=== PATIENT | female | born 1975 | race Caucasian/White ===

== ENCOUNTER 2017-06-04 06:58 | Inpatient (IN) | payer OTHER ==
[2017-06-04] MEDS ORDERED: Sodium Chloride 0.9% 10 ML Syringe FLUSH PRN (08:26)
[2017-06-04] MEDS ORDERED: Oxytocin/Lactated Ringers 10 UNIT/1,000 ML BAG IV SCH ×2 (08:30)
--- NOTE | 2017-06-04 08:30 | PCM.LDHP ---
L&D History of Present Illness - General Date of Service: 06/04/17 Admit Problem/Dx: Admission Diagnosis/Problem Admission Diagnosis/Problem Source of Information: Patient History Limitations: Reports: No Limitations - History of Present Illness Introduction:: 41 year old at 38w0d here for induction for chronic hypertension, diabetes and AMA. - Related Data Allergies/Adverse Reactions: Allergies Allergy/AdvReac Type Severity Reaction Status Date / Time acetaminophen [From Tylenol] Allergy Vomiting Verified 06/04/17 07:40 Penicillins Allergy Anaphylactic Verified 06/04/17 07:39 Shock H&P Review of Systems - Review of Systems: Review Of Systems: See Below General: Reports: No Symptoms HEENT: Reports: No Symptoms Pulmonary: Reports: No Symptoms Cardiovascular: Reports: No Symptoms Gastrointestinal: Reports: No Symptoms Genitourinary: Reports: No Symptoms Musculoskeletal: Reports: No Symptoms Skin: Reports: No Symptoms Psychiatric: Reports: No Symptoms Neurological: Reports: No Symptoms Hematologic/Lymphatic: Reports: No Symptoms Immunologic: Reports: No Symptoms L&D Exam - Exam Exam: See Below - OB Specific Contraction Intensity: Moderate Movement: Active Heart Tones per Min: 145 Presentation: Vertex - Boyle Score Boyle Score Cervix Position: Posterior Boyle Score Consistency: Soft Boyle Score Effacement: 51-70% Boyle Score Dilation: 1-2 cm Boyle Score 's Station: -3 Boyle Score Total: 5 - Exam General: Alert, Oriented HEENT: PERRLA, Conjunctiva Clear, EACs Clear, EOMI, Hearing Intact, Mucosa Moist & [place], Nares Patent, Normal Nasal Septum, Posterior Pharynx Clear, TMs Clear Neck: Supple, Trachea Midline Lungs: Clear to Auscultation, Normal Respiratory Effort Cardiovascular: Regular Rate, Regular Rhythm GI/Abdominal Exam: Normal Bowel Sounds, Soft, Non-Tender, No Organomegaly, No Distention, No Abnormal Bruit, No Mass, Pelvis Stable Genitourinary: Normal external exam, Normal bimanual exam, Normal speculum exam Back Exam: Normal Inspection, Full Range of Motion Extremities: Normal Inspection, Normal Range of Motion, Non-Tender, No Pedal Edema, Normal Capillary Refill Skin: Warm, Dry, Intact Neurological: Cranial Nerves Intact, Reflexes Equal Bilateral Psychiatric: Alert, Normal Affect, Normal Mood Problem List Initiated/Reviewed/Updated: Yes Orders Last 24hrs: Active Orders 24 hr Category Date Time Status Activity as Tolerated [RC] PFP Care 06/04/17 08:26 Ordered Blood Glucose Check, Bedside [RC] WITHMEALSANDBED Care 06/04/17 08:26 Ordered Communication Order [RC] ASDIRECTED Care 06/04/17 08:26 Ordered Heart Tones [RC] ASDIRECTED Care 06/04/17 08:26 Ordered Notify Provider [RC] PFP Care 06/04/17 08:26 Ordered Notify Provider [RC] PRN Care 06/04/17 08:26 Ordered Peripheral IV Care [RC] . DIRECTED Care 06/04/17 08:26 Ordered Vital Signs [RC] PER UNIT ROUTINE Care 06/04/17 08:26 Ordered Regular Diet [DIET] Diet 06/04/17 Breakfast Ordered CBC W/O DIFF,HEMOGRAM [HEME] AM Lab 06/05/17 05:11 Ordered Clindamycin Phosphate [Cleocin] 900 mg Med 06/04/17 08:30 Ordered Sodium Chloride 0.9% [Normal Saline] 100 ml IV Q8H Lactated Ringers [Ringers, Lactated] 1,000 ml Med 06/04/17 08:30 Ordered IV ASDIRECTED Oxytocin/Lactated Ringers [Pitocin in LR 10 Units/1,000 Med 06/04/17 08:30 Ordered ML] 10 unit in 1,000 ml IV .CONTINUOUS Oxytocin/Lactated Ringers [Pitocin in LR 10 Units/1,000 Med 06/04/17 08:30 Ordered ML] 10 unit in 1,000 ml IV TITRATE Sodium Chloride 0.9% [Saline Flush] Med 06/04/17 08:26 Ordered 10 ml FLUSH ASDIRECTED PRN Electronic Heart Tones Ext w TOCO [WOMSER] Oth 06/04/17 08:26 Ordered Routine Electronic Heart Tones Internal [WOMSER] Per Unit Oth 06/04/17 08:26 Ordered Routine Peripheral IV Insertion Adult [OM.PC] Routine Oth 06/04/17 08:26 Ordered Resuscitation Status Routine Resus Stat 06/04/17 08:26 Ordered Assessment/Plan Comment:: Term induction. GBS positive - clindamycin. Check blood sugars q4 initially then more frequently when active or if high or low Monitor BPs
[2017-06-04] MEDS: Lactated Ringers 1,000 ML IV SCH ×3 (08:44→15:17)
[2017-06-04] MEDS: Clindamycin Phosphate 900 MG in Sodium Chloride 0.9% 100 ML IV SCH ×2 (08:44→18:51)
[2017-06-04] MEDS ORDERED: ePHEDrine 50 MG/ML SDV IVPUSH PRN ×2 (12:22→18:47)
[2017-06-04] MEDS ORDERED: fentaNYL 100 MCG/2 ML SDV EPIDUR PRN (12:22)
[2017-06-04] MEDS ORDERED: Ondansetron 4 MG/2 ML SDV IVPUSH PRN (12:22)
--- NOTE | 2017-06-04 12:24 | PCM.PREANE ---
Preanesthetic Assessment - Anesthesia/Transfusion/Family Hx Anesthesia History: Prior Anesthesia Without Reaction Family History of Anesthesia Reaction: No Transfusion History: No Prior Transfusion(s) Intubation History: Unknown - Review of Systems General: No Symptoms Pulmonary: No Symptoms Cardiovascular: No Symptoms (HTN), Lightheadedness (with hypoglycemia) Gastrointestinal: No Symptoms (GERD with ), Constipation Neurological: No Symptoms, Headache Other: Reports: None (history of kidney stones), Easy Bruising, Diabetes (BS @ 1111= 81) - Physical Assessment NPO Status Date: 06/04/17 NPO Status Time: 11:30 Pulse: 81 O2 Sat by Pulse Oximetry: 99 Respiratory Rate: 18 Blood Pressure: 131/90 Temperature: 36.3 C Vital Signs: Last Vital Signs Temp 36.3 C 06/04/17 08:00 Pulse 81 06/04/17 08:00 Resp 18 06/04/17 08:00 BP 131/90 06/04/17 08:00 Pulse Ox 99 06/04/17 08:00 Height: 1.57 m Weight: 98.43 kg ASA Class: 2 Mental Status: Alert & Oriented x3 Airway Class: Mallampati = 2 Dentition: Reports: Normal Dentition, Caries Thyro-Mental Finger Breadths: 3 Mouth Opening Finger Breadths: 3 ROM/Head Extension: Full Lungs: Clear to Auscultation, Normal Respiratory Effort Cardiovascular: Regular Rate, Regular Rhythm, No Murmurs - Lab Values: Laboratory Last Values WBC 10.97 K/mm3 (3.98-10.04) H 06/04/17 09:36 RBC 4.23 M/mm3 (3.98-5.22) 06/04/17 09:36 Hgb 12.5 gm/L (11.2-15.7) 06/04/17 09:36 Hct 37.4 % (34.1-44.9) 06/04/17 09:36 MCV 88.4 fl (79.4-94.8) 06/04/17 09:36 MCH 29.6 pg (25.6-32.2) 06/04/17 09:36 MCHC 33.4 g/dl (32.2-35.5) 06/04/17 09:36 RDW Std Deviation 47.9 fL (36.4-46.3) H 06/04/17 09:36 Plt Count 191 K/mm3 (182-369) 06/04/17 09:36 MPV 11.2 fl (9.4-12.3) 06/04/17 09:36 Above labs reviewed and noted and within acceptable ranges to proceed with epidural if patient so desires. - Allergies Allergies/Adverse Reactions: Allergies Allergy/AdvReac Type Severity Reaction Status Date / Time Penicillins Allergy Anaphylactic Verified 06/04/17 07:39 Shock acetaminophen [From Tylenol] AdvReac Vomiting Verified 06/04/17 08:31 - Anesthesia Plan Pre-Op Medication Ordered: None - Acknowledgements Anesthesia Type Planned: Epidural Pt an Appropriate Candidate for the Planned Anesthesia: Yes Alternatives and Risks of Anesthesia Discussed w Pt/Guardian: Yes Pt/Guardian Understands and Agrees with Anesthesia Plan: Yes PreAnesthesia Questionnaire Cardiovascular History: Reports: Hypertension Genitourinary History: Reports: Renal Calculus Endocrine/Metabolic History: Reports: Diabetes, Gestational - Past Surgical History Female Surgical History: Reports: None - SUBSTANCE USE Smoking Status *Q: Never Smoker Second Hand Smoke Exposure: No Recreational Drug Use History: No - HOME MEDS Home Medications: Home Meds Insulin Lispro [HumaLOG] 100 unit SQ 06/04/17 [History] Methyldopa 250 mg PO BID 06/04/17 [History] PNV95/Ferrous Fumarate/FA [ Vitamin Tablet] 1 tab PO DAILY 06/04/17 [ History] - CURRENT (IN HOUSE) MEDS Current Meds: Current Medications Clindamycin Phosphate 900 mg/ (Sodium Chloride) 106 mls @ 212 mls/hr IV Q8H REJI Last Admin: 06/04/17 08:44 Dose: 212 mls/hr Lactated Ringer's (Ringers, Lactated) 1,000 mls @ 100 mls/hr IV ASDIRECTED REJI Last Admin: 06/04/17 08:44 Dose: 100 mls/hr Oxytocin/Lactated Ringer's (Pitocin In Lr 10 Units/1,000 Ml) 10 unit in 1,000 mls @ 12 mls/hr IV TITRATE REJI; Protocol Last Titration: 06/04/17 09:30 Dose: 4 munits/min, 24 mls/hr Oxytocin/Lactated Ringer's (Pitocin In Lr 10 Units/1,000 Ml) 10 unit in 1,000 mls @ 100 mls/hr IV .CONTINUOUS REJI Sodium Chloride (Saline Flush) 10 ml FLUSH ASDIRECTED PRN PRN Reason: Keep Vein Open
[2017-06-04] MEDS ORDERED: Bupivacaine/fentaNYL/NS 100 ML Bag EPIDUR SCH (12:30)
--- NOTE | 2017-06-04 13:18 | PCM.PNLD ---
Labor Progress Note - VS & Meds Vital Signs: Last Vital Signs Temp 36.3 C 06/04/17 12:24 Pulse 81 06/04/17 12:24 Resp 18 06/04/17 12:24 BP 131/90 06/04/17 12:24 Pulse Ox 99 06/04/17 12:24 Active Medications: Current Medications Ephedrine Sulfate (Ephedrine Sulfate) 5 mg IVPUSH ASDIRECTED PRN PRN Reason: Hypotension Fentanyl (Sublimaze) 100 mcg EPIDUR Q3H PRN PRN Reason: Pain Fentanyl/Bupivacaine HCl (Fentanyl/Bupivacaine/Ns 2 Mcg-0.125% 100 Ml) 100 ml EPIDUR ASDIRECTED [facility] Clindamycin Phosphate 900 mg/ (Sodium Chloride) 106 mls @ 212 mls/hr IV Q8H [facility] Last Admin: 06/04/17 08:44 Dose: 212 mls/hr Lactated Ringer's (Ringers, Lactated) 1,000 mls @ 100 mls/hr IV ASDIRECTED [facility] Last Admin: 06/04/17 08:44 Dose: 100 mls/hr Oxytocin/Lactated Ringer's (Pitocin In Lr 10 Units/1,000 Ml) 10 unit in 1,000 mls @ 12 mls/hr IV TITRATE REJI; Protocol Last Titration: 06/04/17 09:30 Dose: 4 munits/min, 24 mls/hr Oxytocin/Lactated Ringer's (Pitocin In Lr 10 Units/1,000 Ml) 10 unit in 1,000 mls @ 100 mls/hr IV .CONTINUOUS [facility] Ondansetron HCl (Zofran) 4 mg IVPUSH ONETIME PRN PRN Reason: Nausea/Vomiting Sodium Chloride (Saline Flush) 10 ml FLUSH ASDIRECTED PRN PRN Reason: Keep Vein Open - Uterine Contractions Uterine Monitoring Mode: External [place] Contraction Intensity: Moderate - Monitoring Monitor Mode: External Ultrasound Heart Rate (FHR) Baseline: 145 Heart Rate (FHR) Variability: Moderate (6-25 bmp) - Vaginal Exam Dilation (cm): 2.5 Effacement (Percent): 80 Station: -2 Cervical Position: Midposition - Labor Progress (Free Text) Labor Progress: AROM clear fluid. Blood sugars good No concerns. Monitor closely. Anticipate unless otherwise indicated
--- NOTE | 2017-06-04 16:16 | PCM.PNLD ---
Labor Progress Note - VS & Meds Vital Signs: Last Vital Signs Temp 36.3 C 06/04/17 13:26 Pulse 81 06/04/17 13:26 Resp 18 06/04/17 13:26 BP 131/90 06/04/17 13:26 Pulse Ox 99 06/04/17 13:26 Active Medications: Current Medications Ephedrine Sulfate (Ephedrine Sulfate) 5 mg IVPUSH ASDIRECTED PRN PRN Reason: Hypotension Fentanyl (Sublimaze) 100 mcg EPIDUR Q3H PRN PRN Reason: Pain Fentanyl/Bupivacaine HCl (Fentanyl/Bupivacaine/Ns 2 Mcg-0.125% 100 Ml) 100 ml EPIDUR ASDIRECTED [facility] Clindamycin Phosphate 900 mg/ (Sodium Chloride) 106 mls @ 212 mls/hr IV Q8H [facility] Last Admin: 06/04/17 08:44 Dose: 212 mls/hr Lactated Ringer's (Ringers, Lactated) 1,000 mls @ 100 mls/hr IV ASDIRECTED [facility] Last Admin: 06/04/17 13:34 Dose: 100 mls/hr Oxytocin/Lactated Ringer's (Pitocin In Lr 10 Units/1,000 Ml) 10 unit in 1,000 mls @ 12 mls/hr IV TITRATE REJI; Protocol Last Titration: 06/04/17 12:00 Dose: 8 munits/min, 48 mls/hr Oxytocin/Lactated Ringer's (Pitocin In Lr 10 Units/1,000 Ml) 10 unit in 1,000 mls @ 100 mls/hr IV .CONTINUOUS [facility] Ondansetron HCl (Zofran) 4 mg IVPUSH ONETIME PRN PRN Reason: Nausea/Vomiting Sodium Chloride (Saline Flush) 10 ml FLUSH ASDIRECTED PRN PRN Reason: Keep Vein Open - Uterine Contractions Uterine Monitoring Mode: External [place] Contraction Intensity: Moderate to Strong - Monitoring Monitor Mode: External Ultrasound Heart Rate (FHR) Baseline: 145 Heart Rate (FHR) Variability: Moderate (6-25 bmp) Decelerations: Late, Variable Strip Review: Category II - Vaginal Exam Dilation (cm): 5 Effacement (Percent): 80 Station: -3 Cervical Position: Midposition - Labor Progress (Free Text) Labor Progress: Increase in baseline FHR, some variable and lates. Now in last 10 minutes improved. Will restart pitocin and decide in next 15 minutes or so on if continued non-reassuring. If improves will watch closely. Add type and screen.
[2017-06-04] MEDS ORDERED: Citric Acid/Sodium Citrate Solution 30 ML Cup ONE (16:41)
[2017-06-04] MEDS ORDERED: Metoclopramide 10 MG/2 ML SDV ONE (16:41)
[2017-06-04] MEDS ORDERED: Bupivacaine 0.75% 30 ML SDV ONE (16:43)
[2017-06-04] MEDS ORDERED: Ketorolac 30 MG/ML SDV ONE (16:43)
[2017-06-04] MEDS ORDERED: Morphine PF 10 MG/10 ML SDV ONE (16:43)
[2017-06-04] MEDS ORDERED: ceFAZolin 1 GM Vial ONE (16:43)
[2017-06-04] MEDS ORDERED: Lidocaine 1% 4 ML ONE (16:43)
[2017-06-04] MEDS ORDERED: Ondansetron 4 MG/2 ML SDV ONE (16:43)
[2017-06-04] MEDS ORDERED: Oxytocin 10 Units/1 ML SDV ONE (16:43)
[2017-06-04] MEDS ORDERED: Lactated Ringers 2,000 ML ONE (16:43)
[2017-06-04] MEDS ORDERED: Phenylephrine 1% 10 MG/ML SDV ONE (16:43)
[2017-06-04] MEDS ORDERED: 50% Dextrose in Water 50 ML Syringe ONE (16:58)
[2017-06-04] MEDS ORDERED: Bupivacaine 0.5% 30 ML SDV ONE (17:02)
[2017-06-04] MEDS ORDERED: Propofol 200 MG/20 ML SDV ONE ×2 (17:15→17:18)
[2017-06-04] MEDS ORDERED: fentaNYL 250 MCG/5 ML SDV ONE (17:16)
[2017-06-04] MEDS ORDERED: Succinylcholine/Normal Saline 100 MG/5 ML Syringe ONE ×2 (17:27)
[2017-06-04] MEDS ORDERED: HYDROmorphone 0.5 MG/0.5 ML Syringe ONE (17:39)
--- NOTE | 2017-06-04 18:10 | PCM.OPNOTE ---
- General Post-Op/Procedure Note Date of Surgery/Procedure: 06/04/17 Operative Procedure(s): primary Findings: vertex, viable male, weight 5#11, 1721, APGARS 1/7 Pre Op Diagnosis: non reassuring monitoring, GDM, chronic HTN, age 41 Post-Op Diagnosis: Same Anesthesia Technique: General ET Tube Primary Surgeon: Fabiana Hicks Cartography Teacher: Yair Nobles Reason Cartography Teacher Was Necessary: retraction, stat nature, patient safety Pathology: placenta Fluid Replacement, Intraop: 1,500 Output, Urine Amount: 200 EBL in mLs: 1,200 Complications: None Condition: Good Free Text/Narrative:: Intake & Output 06/04/17 06/04/17 06/04/17 06:59 14:59 22:59 Intake Total 0 Balance 0 Doppler heart rate obtained immediately upon arrival to OR. The patient was taken to the operating room where general anesthesia was initiated. The patient was prepped and draped in the usual sterile fashion in the dorsal supine position with a leftward tilt. A Pfannenstiel skin incision was made with the scalpel and carried through to the underlying layer of fascia. The fascia was incised in the midline and extended bluntly. Peritoneum entered and extended bluntly. Uterine incision made and extended digitally. Clear fluid was noted. The was subsequently delivered by flexing the head to the incision. Body and shoulders followed without difficulty. The cord was clamped and cut. The limp infant was subsequently handed to the awaiting student finance specialist whose presence had been requested.. The placenta was delivered spontaneously intact with a three- vessel cord noted. The uterus was exteriorized and cleared of all clots and debris. The uterine incision was repaired in 2 layers using 0 monocryl. Hemostasis was visualized. Hemostasis was visualized bilaterally. The uterus was returned to the abdomen. The uterine incision was reexamined and it was noted to be hemostatic. The pelvis was copiously irrigated. The fascia was closed with 1 PDS suture, and the skin was closed with 3-0 monocryl. Sponge, lap, and instrument counts were correct x2. The patient was stable at the completion of the procedure and was subsequently transferred to the recovery room in stable condition.
[2017-06-04] MEDS ORDERED: Acetaminophen/oxyCODONE 325-5 MG Tab PO PRN (18:47)
[2017-06-04] MEDS ORDERED: Docusate Sodium 100 MG Cap PO PRN (18:47)
[2017-06-04] MEDS ORDERED: diphenhydrAMINE 50 MG/ML SDV IVPUSH PRN (18:47)
[2017-06-04] MEDS ORDERED: Lanolin 100% Cream 7 GM Tube TOP PRN (18:47)
[2017-06-04] MEDS ORDERED: Dextrose 5%-Lactated Ringers 1,000 ML IV SCH (18:47)
[2017-06-04] MEDS ORDERED: Naloxone 0.4 MG/ML SDV IVPUSH PRN (18:47)
[2017-06-04] MEDS: oxyCODONE 5 MG Tab PO PRN (20:05)
[2017-06-04] MEDS: Ketorolac 30 MG/ML SDV IVPUSH SCH (23:21)
[2017-06-05] MEDS ORDERED: ceFAZolin 2 GM in Premix Bag 1 BAG IV ONE (01:00)
[2017-06-05] MEDS: Ketorolac 30 MG/ML SDV IVPUSH SCH ×2 (04:47→10:49)
[2017-06-05] MEDS: oxyCODONE 5 MG Tab PO PRN ×3 (04:48→18:00)
--- NOTE | 2017-06-05 10:03 | PCM.POSTAN ---
POST ANESTHESIA ASSESSMENT - MENTAL STATUS Mental Status: Alert - VITAL SIGNS Pulse Rate: 103 SaO2: 93 Resp Rate: 18 Blood Pressure: 113/68 Temperature: 37.2 C - RESPIRATORY Respiratory Status: Respiratory Rate WNL, Airway Patent, O2 Saturation Stable - CARDIOVASCULAR CV Status: Pulse Rate WNL, Blood Pressure Stable - GASTROINTESTINAL GI Status: No Symptoms - POST OP HYDRATION Hydration Status: Adequate & Stable
--- NOTE | 2017-06-05 10:05 | PCM48HPAN ---
Post Anesthesia Note - EVALUATION WITHIN 48HRS OF ANESTHETIC Vital Signs in Normal Range: Yes Patient Participated in Evaluation: Yes Respiratory Function Stable: Yes Airway Patent: Yes Cardiovascular Function Stable: Yes Hydration Status Stable: Yes Pain Control Satisfactory: Yes Nausea and Vomiting Control Satisfactory: Yes Mental Status Recovered: Yes
--- NOTE | 2017-06-05 10:43 | PCM.SN ---
- Free Text/Narrative Note: day 1 Afebrile Patient doing well no heavy vaginal bleeding ambulating. Blood sugar just now 128. He started her methyldopa 250 mg twice a day. Prescription for Roxicodone 5 mg dispensed 10 one by mouth every 6-8 hours when necessary pain at home but pharmacies closed on Wednesday so she'll have this prescription when she goes home were dismiss tomorrow.
[2017-06-05] MEDS ORDERED: Ibuprofen 600 MG Tab PO PRN (17:00)
[2017-06-05] MEDS ORDERED: Insulin Detemir 100 Units/ML 3 ML Pen SUBCUT SCH (20:00)
--- NOTE | 2017-06-06 10:04 | PCM.DCSUM1 ---
Discharge Summary - Hospital Course Free Text/Narrative:: [facility] Post-Op/Procedure Note Patient Name: ANGELA NY Date of : 73 Patient Status: Inpatient Attending Provider: Fabiana Hicks Date: 06/04/17 18:04 Initialization Date: 06/04/17 18:04 - General Post-Op/Procedure Note Date of Surgery/Procedure: 06/04/17 Operative Procedure(s): primary Findings: vertex, viable male, weight 5#11, 1721, APGARS 1/7 Pre Op Diagnosis: non reassuring monitoring, GDM, chronic HTN, age 41 Post-Op Diagnosis: Same Anesthesia Technique: General ET Tube Primary Surgeon: Fabiana Hicks Business Banker: Yair Nobles Reason Business Banker Was Necessary: retraction, stat nature, patient safety Pathology: placenta Fluid Replacement, Intraop: 1,500 Output, Urine Amount: 200 EBL in mLs: 1,200 Complications: None Condition: Good Free Text/Narrative:: Intake & Output 06/04/17 06/04/17 06/04/17 06:59 14:59 22:59 Intake Total 0 Balance 0 Doppler heart rate obtained immediately upon arrival to OR. The patient was taken to the operating room where general anesthesia was initiated. The patient was prepped and draped in the usual sterile fashion in the dorsal supine position with a leftward tilt. A Pfannenstiel skin incision was made with the scalpel and carried through to the underlying layer of fascia. The fascia was incised in the midline and extended bluntly. Peritoneum entered and extended bluntly. Uterine incision made and extended digitally. Clear fluid was noted. The infant was subsequently delivered by flexing the head to the incision. Body and shoulders followed without difficulty. The cord was clamped and cut. The limp was subsequently handed to the awaiting shell fisherman whose presence had been requested.. The placenta was delivered spontaneously intact with a three- vessel cord noted. The uterus was exteriorized and cleared of all clots and debris. The uterine incision was repaired in 2 layers using 0 monocryl. Hemostasis was visualized. Hemostasis was visualized bilaterally. The uterus was returned to the abdomen. The uterine incision was reexamined and it was noted to be hemostatic. The pelvis was copiously irrigated. The fascia was closed with 1 PDS suture, and the skin was closed with 3-0 monocryl. Sponge, lap, and instrument counts were correct x2. The patient was stable at the completion of the procedure and was subsequently transferred to the recovery room in stable condition. HPI Initial Comments: [facility] Post-Op/Procedure Note Patient Name: ANGELA NY Date of : 73 Patient Status: Inpatient Attending Provider: Fabiana Hicks Date: 06/04/17 18:04 Initialization Date: 06/04/17 18:04 - General Post-Op/Procedure Note Date of Surgery/Procedure: 06/04/17 Operative Procedure(s): primary Findings: vertex, viable male, weight 5#11, 1721, APGARS 1/7 Pre Op Diagnosis: non reassuring monitoring, GDM, chronic HTN, age 41 Post-Op Diagnosis: Same Anesthesia Technique: General ET Tube Primary Surgeon: Fabiana Hicks Business Banker: Yair Nobles Reason Business Banker Was Necessary: retraction, stat nature, patient safety Pathology: placenta Fluid Replacement, Intraop: 1,500 Output, Urine Amount: 200 EBL in mLs: 1,200 Complications: None Condition: Good Free Text/Narrative:: Intake & Output 06/04/17 06/04/17 06/04/17 06:59 14:59 22:59 Intake Total 0 Balance 0 Doppler heart rate obtained immediately upon arrival to OR. The patient was taken to the operating room where general anesthesia was initiated. The patient was prepped and draped in the usual sterile fashion in the dorsal supine position with a leftward tilt. A Pfannenstiel skin incision was made with the scalpel and carried through to the underlying layer of fascia. The fascia was incised in the midline and extended bluntly. Peritoneum entered and extended bluntly. Uterine incision made and extended digitally. Clear fluid was noted. The infant was subsequently delivered by flexing the head to the incision. Body and shoulders followed without difficulty. The cord was clamped and cut. The limp was subsequently handed to the awaiting shell fisherman whose presence had been requested.. The placenta was delivered spontaneously intact with a three- vessel cord noted. The uterus was exteriorized and cleared of all clots and debris. The uterine incision was repaired in 2 layers using 0 monocryl. Hemostasis was visualized. Hemostasis was visualized bilaterally. The uterus was returned to the abdomen. The uterine incision was reexamined and it was noted to be hemostatic. The pelvis was copiously irrigated. The fascia was closed with 1 PDS suture, and the skin was closed with 3-0 monocryl. Sponge, lap, and instrument counts were correct x2. The patient was stable at the completion of the procedure and was subsequently transferred to the recovery room in stable condition. Brief History: [facility] . Post-Op/Procedure Note. [facility]: [id number]. Date of : Patient Status: Inpatient. Attending Provider: Fabiana HicksAccount Number: [id number]. Date: 06/04/17 18:04Initialization Date: 06/04/17 18:04. - General Post-Op/Procedure Note. Date of Surgery/Procedure: 06/04/17. Operative Procedure(s): primary . Findings: vertex, viable male, weight 5#11, 1721, APGARS 1/7. Pre Op Diagnosis: non reassuring monitoring, GDM, chronic HTN, age 41. Post-Op Diagnosis: Same. Anesthesia Technique: General ET Tube. Primary Surgeon: Fabiana Hicks. Business Banker: Yair Nobles. Reason Business Banker Was Necessary: retraction, stat nature, patient safety. Pathology: placenta. Fluid Replacement, Intraop : 1,500. Output, Urine Amount: 200. EBL in mLs: 1,200. Complications: None. Condition: Good. Free Text/Narrative:: Intake & Output. 06/05/1803/. [id number]:5914:[id number]. Intake Total0. Balance0. Doppler heart rate obtained immediately upon arrival to OR. The patient was taken to the operating room where general anesthesia was initiated. The patient was prepped and draped in the usual sterile fashion in the dorsal supine position with a leftward tilt. A Pfannenstiel skin incision was made with the scalpel and carried through to the underlying layer of fascia. The fascia was incised in the midline and extended bluntly. Peritoneum entered and extended bluntly. Uterine incision made and extended digitally. Clear fluid was noted. The infant was subsequently delivered by flexing the head to the incision. Body and shoulders followed without difficulty. The cord was clamped and cut. The limp infant was subsequently handed to the awaiting shell fisherman whose presence had been requested.. The placenta was delivered spontaneously intact with a three-vessel cord noted. The uterus was exteriorized and cleared of all clots and debris. The uterine incision was repaired in 2 layers using 0 monocryl. Hemostasis was visualized. Hemostasis was visualized bilaterally. The uterus was returned to the abdomen. The uterine incision was reexamined and it was noted to be hemostatic. The pelvis was copiously irrigated. The fascia was closed with 1 PDS suture, and the skin was closed with 3-0 monocryl. Sponge, lap, and instrument counts were correct x2. The patient was stable at the completion of the procedure and was subsequently transferred to the recovery room in stable condition. - Discharge Data Discharge Date: 06/06/17 Discharge Disposition: Home, Self-Care 01 Condition: Good - Discharge Diagnosis/Problem(s) (1) 37 weeks gestation of SNOMED Code(s): 98180962 ICD Code: Z3A.37 - 37 WEEKS GESTATION OF Status: Acute Current Visit: Yes (2) Gestational diabetes SNOMED Code(s): 46884542 ICD Code: O24.419 - GESTATIONAL DIABETES MELLITUS IN , UNSP CONTROL Status: Acute Current Visit: Yes Qualifiers: Gestational diabetes mellitus control: insulin-controlled Trimester: third trimester Qualified Code(s): O24.414 - Gestational diabetes mellitus in , insulin controlled (3) Chronic hypertension affecting SNOMED Code(s): 93770409 ICD Code: O10.919 - UNSP PRE-EXISTING HTN COMP , UNSP TRIMESTER Status: Acute Current Visit: Yes (4) Non-reassuring heart tones, delivered, current hospitalization SNOMED Code(s): 713631784 ICD Code: O76 - ABNLT IN HEART RATE AND RHYTHM COMP LABOR AND DELIVERY Status: Acute Current Visit: Yes (5) Obesity SNOMED Code(s): 646742541, 110358276 ICD Code: E66.9 - OBESITY, UNSPECIFIED Status: Acute Current Visit: Yes Qualifiers: Obesity type: unspecified obesity type Obesity classification: unspecified obesity classification Serious obesity comorbidity presence: unspecified whether serious comorbidity present Qualified Code(s): E66.9 - Obesity, unspecified - Patient Summary/Data Operative Procedure(s) Performed: primary Complications: None postop. Consults: None Hospital Course: Uneventful - Patient Instructions Diet: Diabetic Diet Driving: Do Not Drive (To not drive for 1 week or for 48 hours after last dose of OxyContin) Showering/Bathing: May Shower, No Tub Bathing/Swimming (6 weeks) Wound/Incision Care: Keep Operative Site/Wound Site Clean and Dry Notify Provider of: Fever, Increased Pain, Swelling and Redness, Drainage, Nausea and/or Vomiting - Discharge Plan Prescriptions/Med Rec: oxyCODONE 5 mg PO Q6H PRN #10 tablet PRN Reason: Pain Home Medications: Home Meds Insulin Lispro [HumaLOG] 100 unit SQ 06/04/17 [History] Methyldopa 250 mg PO BID 06/04/17 [History] PNV95/Ferrous Fumarate/FA [ Vitamin Tablet] 1 tab PO DAILY 06/04/17 [ History] Ibuprofen [IJD: Ibuprofen] 600 mg PO Q6H PRN tablet 06/06/17 [Rx] Lanolin [Lansinoh HPA] 1 applic TOP ASDIRECTED PRN tube 06/06/17 [Rx] Methyldopa 250 mg PO BID tablet 06/06/17 [Rx] oxyCODONE 5 mg PO Q6H PRN #10 tablet 06/06/17 [Rx] Patient Handouts: Delivery, Care After Referrals: Fabiana Hicks MD [Primary Care Provider] - (Call Wednesday for appointment week after next per Dr. Hicks) - Discharge Summary/Plan Comment DC Time >30 min.: No - Patient Data Vitals - Most Recent: Last Vital Signs Temp 98.6 F 06/06/17 03:49 Pulse 104 H 06/06/17 02:59 Resp 16 06/06/17 02:59 BP 116/77 06/06/17 08:19 Pulse Ox 96 06/06/17 02:59 Weight - Most Recent: 217 lb I&O - Last 24 hours: Intake & Output 06/05/17 06/06/17 06/06/17 22:59 06:59 14:59 Intake Total 0 0 Output Total 800 Balance -800 0 Med Orders - Current: Current Medications Diphenhydramine HCl (Benadryl) 25 mg IVPUSH Q6H PRN PRN Reason: Itching or Nausea Docusate Sodium (Colace) 100 mg PO Q12H PRN PRN Reason: Constipation Emollient Ointment (Lansinoh Hpa) 0 gm TOP ASDIRECTED PRN PRN Reason: Sore Nipples Ephedrine Sulfate (Ephedrine Sulfate) 5 mg IVPUSH SEECOMMENT PRN PRN Reason: Other Ibuprofen (Motrin) 600 mg PO Q6H PRN PRN Reason: mild pain or fever Last Admin: 06/06/17 02:58 Dose: 600 mg Insulin Detemir (Levemir) 3 unit SUBCUT DAILY@1999 REJI Methyldopa (Methyldopa) 250 mg PO BID [facility] Last Admin: 06/06/17 08:19 Dose: 250 mg Naloxone HCl (Narcan) 0.1 mg IVPUSH SEECOMMENT PRN PRN Reason: Respiratory Depression Oxycodone HCl (Oxycodone) 5 mg PO Q4H PRN PRN Reason: Pain Last Admin: 06/05/17 18:00 Dose: 5 mg Discontinued Medications Bupivacaine HCl (Sensorcaine-Mpf 0.75%) Confirm Administered Dose 30 ml .ROUTE .STK-MED ONE Stop: 06/04/17 16:44 Bupivacaine HCl (Marcaine 0.5%) Confirm Administered Dose 30 ml .ROUTE .STK-MED ONE Stop: 06/04/17 17:03 Cefazolin Sodium (Ancef) Confirm Administered Dose 2 gm .ROUTE .STK-MED ONE Stop: 06/04/17 16:44 Citric Acid/Sodium Citrate (Bicitra Solution) Confirm Administered Dose 30 ml .ROUTE .STK-MED ONE Stop: 06/04/17 16:42 Last Admin: 06/04/17 16:50 Dose: 30 ml Dextrose/Water (Dextrose 50% In Water) Confirm Administered Dose 50 ml .ROUTE .STK-MED ONE Stop: 06/04/17 16:59 Ephedrine Sulfate (Ephedrine Sulfate) 5 mg IVPUSH ASDIRECTED PRN PRN Reason: Hypotension Fentanyl (Sublimaze) 100 mcg EPIDUR Q3H PRN PRN Reason: Pain Fentanyl (Sublimaze) Confirm Administered Dose 250 mcg .ROUTE .[facility] ONE Stop: 06/04/17 17:17 Fentanyl/Bupivacaine HCl (Fentanyl/Bupivacaine/Ns 2 Mcg-0.125% 100 Ml) 100 ml EPIDUR ASDIRECTED [facility] Hydromorphone HCl (Dilaudid) Confirm Administered Dose 0.5 mg .ROUTE .[facility] ONE Stop: 06/04/17 17:40 Clindamycin Phosphate 900 mg/ (Sodium Chloride) 106 mls @ 212 mls/hr IV Q8H [facility] Last Admin: 06/04/17 18:51 Dose: Not Given Lactated Ringer's (Ringers, Lactated) 1,000 mls @ 100 mls/hr IV ASDIRECTED [facility] Last Admin: 06/04/17 15:17 Dose: 900 mls/hr Oxytocin/Lactated Ringer's (Pitocin In Lr 10 Units/1,000 Ml) 10 unit in 1,000 mls @ 12 mls/hr IV TITRATE REJI; Protocol Last Titration: 06/04/17 12:00 Dose: 8 munits/min, 48 mls/hr Oxytocin/Lactated Ringer's (Pitocin In Lr 10 Units/1,000 Ml) 10 unit in 1,000 mls @ 100 mls/hr IV .CONTINUOUS [facility] Lidocaine HCl (Xylocaine-Mpf 1%) Confirm Administered Dose 4 mls @ as directed .ROUTE .[facility] ONE Stop: 06/04/17 16:44 Lactated Ringer's (Ringers, Lactated) Confirm Administered Dose 2,000 mls @ as directed .ROUTE .[facility] ONE Stop: 06/04/17 16:44 Cefazolin Sodium/Dextrose 2 gm (/ Premix) 50 mls @ 100 mls/hr IV ONETIME ONE Stop: 06/05/17 01:29 Last Admin: 06/05/17 01:27 Dose: 100 mls/hr Dextrose/Lactated Ringer's (Dextrose 5%-Lactated Ringers) 1,000 mls @ 125 mls/ hr IV ASDIRECTED [facility] Stop: 06/05/17 02:46 Last Admin: 06/04/17 21:48 Dose: 125 mls/hr Insulin Detemir (Levemir) 3 unit SUBCUT DAILY [facility] Last Admin: 06/05/17 20:10 Dose: 3 units Ketorolac Tromethamine (Toradol) Confirm Administered Dose 30 mg .ROUTE .STK- MED ONE Stop: 06/04/17 16:44 Ketorolac Tromethamine (Toradol) 30 mg IVPUSH Q6H REJI Stop: 06/05/17 11:01 Last Admin: 06/05/17 10:49 Dose: 30 mg Metoclopramide HCl (Reglan) Confirm Administered Dose 10 mg .ROUTE .STK-MED ONE Stop: 06/04/17 16:42 Last Admin: 06/04/17 16:50 Dose: 10 mg Morphine Sulfate (Duramorph Pf) Confirm Administered Dose 10 mg .ROUTE .STK-MED ONE Stop: 06/04/17 16:44 Ondansetron HCl (Zofran) 4 mg IVPUSH ONETIME PRN PRN Reason: Nausea/Vomiting Ondansetron HCl (Zofran) Confirm Administered Dose 4 mg .ROUTE .STK-MED ONE Stop: 06/04/17 16:44 Oxycodone/Acetaminophen (Percocet 325-5 Mg) 2 tab PO Q6H PRN PRN Reason: Pain (moderate 4-6) Oxytocin (Pitocin) Confirm Administered Dose 10 unit .ROUTE .STK-MED ONE Stop: 06/04/17 16:44 Phenylephrine HCl (Sachin-Synephrine) Confirm Administered Dose 10 mg .ROUTE .STK- MED ONE Stop: 06/04/17 16:44 Propofol (Diprivan 20 Ml) Confirm Administered Dose 200 mg .ROUTE .STK-MED ONE Stop: 06/04/17 17:16 Propofol (Diprivan 20 Ml) Confirm Administered Dose 200 mg .ROUTE .STK-MED ONE Stop: 06/04/17 17:19 Sodium Chloride (Saline Flush) 10 ml FLUSH ASDIRECTED PRN PRN Reason: Keep Vein Open Succinylcholine Chloride (Succinylcholine In Ns Pf) Confirm Administered Dose 100 mg .ROUTE .STK-MED ONE Stop: 06/04/17 17:28 Succinylcholine Chloride (Succinylcholine In Ns Pf) Confirm Administered Dose 100 mg .ROUTE .STK-MED ONE Stop: 06/04/17 17:28
[2017-06-06] MEDS ORDERED: Insulin Detemir 100 Units/ML 3 ML Pen SUBCUT SCH (20:00)
== END 2017-06-06 11:37 | disposition home or self-care (01) | DRG 766 ==
LOC: JD.OB 06:58 → OBSVTOIN 17:21 → JD.OB 17:22
PROVIDERS: ADMIT Obstetrics & Gynecology; ATTEND Obstetrics & Gynecology
PROC: 10D00Z1 Extraction of Products of Conception, Low, Open Approach (ICD-10-PCS; principal; 2017-06-04)
PROC: 3E033VJ Introduction of Other Hormone into Peripheral Vein, Percutaneous Approach (ICD-10-PCS; 2017-06-04)
PROC: 10907ZC Drainage of Amniotic Fluid, Therapeutic from Products of Conception, Via Natural or Artificial Opening (ICD-10-PCS; 2017-06-04)
PROC: 00HU33Z Insertion of Infusion Device into Spinal Canal, Percutaneous Approach (ICD-10-PCS; 2017-06-04)
PROC: 3E0R3BZ Introduction of Anesthetic Agent into Spinal Canal, Percutaneous Approach (ICD-10-PCS; 2017-06-04)
DX: O10.02 Pre-existing essential hypertension complicating childbirth (principal); O24.424 Gestational diabetes mellitus in childbirth, insulin controlled; O99.214 Obesity complicating childbirth; E66.9 Obesity, unspecified; O76 Abnormality in fetal heart rate and rhythm complicating labor and delivery; O99.824 Streptococcus B carrier state complicating childbirth; Z3A.37 37 weeks gestation of pregnancy; Z37.0 Single live birth; Z87.442 Personal history of urinary calculi; Z88.0 Allergy status to penicillin; Z88.8 Allergy status to other drugs, medicaments and biological substances; Z79.899 Other long term (current) drug therapy
CPT/HCPCS: 36415; 36600; 59025; 82803; 82962; 85025; 85027; 86850; 86900; 86901; A9270-GY; J0330; J0690; J1170; J1815-GY; J1885; J2001; J2270; J2370; J2405; J2590; J2704; J2765; J3010; J7030; J7042; J7060; J7120